=== PATIENT | female | born 1990 | race Caucasian/White ===

== ENCOUNTER 2016-12-11 06:12 | Inpatient (IN) | payer BC ==
[~2016-12-11] VITALS: Ht 160 cm; Wt 95.5 kg
--- NOTE | ~2016-12-11 | DS ---
PATIENT'S NAME: PERLA VERA [facility] AGE: 26 Y [address] ROOM: [address] [address] LOCATION: GOBS ADMIT DATE: 12/11/2016 Discharge Summary DISCHARGE DATE: 12/14/2016 FAMILY PHYSICIAN: PHYSICIAN, NO ATTENDING PHYSICIAN: Agueda Fuentes DISCHARGE DIAGNOSES: 1. Intrauterine at 39 weeks. 2. Prior section x2. PROCEDURE: Repeat low transverse section. REASON FOR ADMISSION: This is a 26-year-old 3, para 2-0-0-2, who presents at 39 weeks' gestation for repeat section. Please see full H and P. HOSPITAL COURSE: The patient is admitted and a repeat low transverse section was performed without difficulty. It was done under spinal anesthetic. Following surgery, she had a TAP block. She had 500 mL of blood loss during surgery. On postop day #1, her hemoglobin is 11.4. On postop day #2, her incision is clean, dry, and intact. The patient desires discharge. On postop day #3,she is sent home with Percocet and Motrin for pain. She will follow up with Dr. Fuentes in 2 and 6 week's time. Precautions are reviewed. MD MINA LARA/yolanda /[id number] d: 12/30/16 0308 t: 01/05/17 1301, DISCHARGE SUMMARY
--- NOTE | ~2016-12-11 | OR ---
PATIENT'S NAME: PERLA VERA [facility] AGE: 26 Y [address] ROOM: [address] [address] LOCATION: [facility] ADMIT DATE: 12/11/2016 OR/Procedure Report DISCHARGE DATE: FAMILY PHYSICIAN: PHYSICIAN, NO ATTENDING PHYSICIAN: Agueda Fuentes SURGEON: Agueda Fuentes MD WAX ENGRAVER: Dr. Galvez. DATE OF PROCEDURE: 12/11/2016 PREOPERATIVE DIAGNOSES: 1. Intrauterine at 39 weeks. 2. Prior section x2. POSTOPERATIVE DIAGNOSES: 1. Intrauterine at 39 weeks. 2. Prior section x2. 3. Meconium-stained fluid. ANESTHESIA: Spinal. ESTIMATED BLOOD LOSS: 500 mL. COMPLICATIONS: None. PROCEDURES: Repeat low transverse section. DESCRIPTION OF PROCEDURE: The patient in the operating room and placed under spinal anesthetic. She was prepped and draped and a Davis catheter was placed. A Pfannenstiel skin incision was made with a knife and carried down to the level of the fascia. The fascia was nicked in midline. The incision was carried out laterally. The fascia sharply and bluntly dissected from the underlying rectus muscles. Peritoneum was opened sharply and incised and stretched. The bladder blade was placed. Bladder reflection was taken down sharply and placed behind the bladder blade. A low transverse uterine incision was made with a knife and carried out laterally with the hogshead press operator's fingers. Meconium-stained fluid was noted. The vertex was delivered over the uterine incision. Mouth and nares were suctioned. Shoulders and body were delivered. Baby boy is continued to be suctioned and then he was handed off to the warmer. He weighed 8 pounds 7 ounces with of 8 and 8. A three- vessel cord was noted. Placenta delivered manually and intact. It was sent to pathology. The uterus clamped down nicely. Remaining membranes were swept from the uterus. The uterine incision closed in a running locking stitch of 0 chromic and closed with a second stitch of 0 chromic. The uterine tone is good and bleeding is minimal. The tubes and ovaries were normal. The uterus was replaced within the peritoneal cavity. The peritoneum was closed with 2-0 PATIENT'S NAME: PERLA VERA [facility] AGE: 26 Y [address] ROOM: [address] [place], [place] [address] LOCATION: BS ADMIT DATE: 12/11/2016 OR/Procedure Report DISCHARGE DATE: FAMILY PHYSICIAN: PHYSICIAN, DEBBY ATTENDING PHYSICIAN: Agueda Fuentes Vicrykaila. 0 Vicryl was used to close the fascia, tied separately in the midline. A 4-0 Dexon was used to close the skin. The patient tolerated the procedure well. She and her baby boy were doing well in recovery. Before the bandage was placed, Steri-Strips and benzoin were placed. MD MINA LARA/yolanda /[id number] d: 12/11/16913 t: 12/12/16 09, OPERATIVE SUMMARY
--- NOTE | ~2016-12-11 | HP ---
PATIENT'S NAME: PERLA VERA [facility] AGE: 26 Y [address] ROOM: [place] [address] LOCATION: [facility] ADMIT DATE: 12/11/2016 History & Physical DISCHARGE DATE: FAMILY PHYSICIAN: PHYSICIAN, NO ATTENDING PHYSICIAN: Agueda Fuentes DATE OF SERVICE: HISTORY OF PRESENT ILLNESS: This is a 26-year-old 3, para 2-0-0-2, who presents for repeat section. She has a due date of 12/15/2016, set by an early ultrasound. Her initial care was done in [place]. She transferred here on 20 weeks. There have been no complications. She did require 4 units of blood and a Bakri balloon with her first , but her second was really without complication. Her labs were in [place], showed O positive, antibody screen negative, RPR nonreactive, hepatitis B surface antigen nonreactive, gonorrhea and chlamydia negative, rubella immune, group B strep testing was done and was isolated. DICTATION ENDS HERE. MD MINA LARA/yolanda /[id number] D: [id number] T: [id number] HISTORY & PHYSICAL
[~2016-12-11 06:12] MED LIST: MOTRIN800 MG PO; PERCOCET 5-3251 EACH PO; PRENATAL 1+1)(P1 TAB PO
[2016-12-11 06:35] LABS: BASOPHIL % 0.2 %; EOSINOPHIL # 0.1 K/uL (0.0-0.5); EOSINOPHIL % 0.7 %; HEMATOCRIT 38.7 % (33.0-46.0); HEMOGLOBIN 12.8 g/dL (11.0-15.0); IMMATURE GRANULOCYTE # 0.1 K/uL (0.0-0.3); IMMATURE GRANULOCYTE % 0.6 %; LYMPHOCYTE # 2.6 K/uL (0.8-4.0); LYMPHOCYTE % 23.4 %; MCH 31.4 pg (27.0-34.0); MCHC 33.1 gm/dL (32.0-36.5); MCV 94.9 fl (83.0-98.0); MONOCYTE # 0.7 K/uL (0.0-1.0); MONOCYTE % 6.3 %; MPV 10.1 fl (9.4-12.4); NEUTROPHIL # (ANC) 7.6 K/uL (1.8-7.8); NEUTROPHIL % 68.8 %; NRBC % 0 /100WBC (0-0.00); PLATELET COUNT 222 K/uL (150-450); RDW-CV 13.7 % (11.9-14.6)
[2016-12-11 06:37] LABS: RBC 4.08 M/uL (3.50-5.00)
--- NOTE | 2016-12-11 16:42 | NUR ---
Last VS: T:97.0 P:62 R: 16 BP: 101/72 Pain ratin Last pain med: Toradol at 1500, Percocet due at 1700 Medicated at: Effective: yes R Lung sounds: clear L Lung sounds: clear Fundus: firm, -1 midline Lochia: rubra small Breasts: soft Nipples: flat and graspable, given a nipple everter Incision: drsg intact Incision appearance: Bowel sounds: present Passing flatus: Voiding well: 1725 out alvarez, + 1 mod void post alvarez removal Significant event: Alvarez catheter was removed at 1520. She ambulated to the bathroom after and had a mod void. Passed few clots. She was able to dress and up independently in her room.
[2016-12-12 05:08] LABS: BASOPHIL % 0.2 %; EOSINOPHIL # 0.1 K/uL (0.0-0.5); EOSINOPHIL % 0.6 %; HEMATOCRIT 34.7 % (33.0-46.0); HEMOGLOBIN 11.4 g/dL (11.0-15.0); IMMATURE GRANULOCYTE # 0.1 K/uL (0.0-0.3); IMMATURE GRANULOCYTE % 0.5 %; LYMPHOCYTE # 2.5 K/uL (0.8-4.0); LYMPHOCYTE % 22.9 %; MCH 31.3 pg (27.0-34.0); MCHC 32.9 gm/dL (32.0-36.5); MCV 95.3 fl (83.0-98.0); MONOCYTE # 0.6 K/uL (0.0-1.0); MONOCYTE % 5.9 %; NEUTROPHIL # (ANC) 7.5 K/uL (1.8-7.8); NEUTROPHIL % 69.9 %; NRBC % 0 /100WBC (0-0.00); PLATELET COUNT 188 K/uL (150-450); RBC 3.64 M/uL (3.50-5.00); RDW-CV 13.8 % (11.9-14.6); WBC 10.7 K/uL (4.0-11.0)
--- NOTE | 2016-12-12 05:16 | NUR ---
Last VS: T:98.3 P:74 R: 16 BP: 109/70 Pain ratin Last pain med: Percocet Medicated at: 0513 Effective: R Lung sounds: Clear L Lung sounds: Clear Fundus: midline, firm Lochia: rubra, small Breasts: soft Nipples: intact Incision: Covered by dressing, dressing is clean, dry, intact Incision appearance: Incision closure: Bowel sounds: Active Passing flatus: No Voiding well: Yes Significant event: VSS. Up independently. at the bedside. Cooperative with cares.
--- NOTE | 2016-12-12 14:35 | NUR ---
Met elke and baby at bedside today. Introduced myself and the role of the CM department. Patient and her deny having any discharge needs. They have 2 other children at home. They have all necessary items for baby. Instructed them to contact their insurance within 30 days to get baby added to the policy. They deny having any questions or concerns at this time.
--- NOTE | 2016-12-13 05:39 | NUR ---
VSS, fundus firm, lochia small, emptying bladder without difficulty. incision dry and intact, steristrips look good. up ad mariaa. doing well. last meds were at 0500, 2 percocet and 1 motrin.
--- NOTE | 2016-12-13 16:28 | NUR ---
Last VS: T:98.2 P:76 R: 14 BP: 97/55 Pain rating: . Last pain med: percocets Medicated at: Effective: R Lung sounds: clear L Lung sounds: clear Fundus: firm and 1 finger down Lochia: , Breasts: , Nipples: Incision: , Incision appearance: incision clean and dry with sutures and strips intact. Incision closure: Bowel sounds: present Passing flatus: yes Voiding well: yes Significant event: . patient up and about in room and hallway.
--- NOTE | 2016-12-14 04:42 | NUR ---
VSS, fundus firm, lochia small, emptying bladder without difficulty. incision looks good, steristrips intact.
[2016-12-14] MEDS ORDERED: PERCOCET 5-3251 EACH PO (11:16)
[2016-12-14] MEDS ORDERED: MOTRIN800 MG PO (11:16)
== END 2016-12-14 17:40 | disposition disaster alternative care site (69) | DRG 766 ==
LOC: GOBS 06:12
PROVIDERS: ADMIT Obstetrics & Gynecology
PROC: 10D00Z1 Extraction of Products of Conception, Low, Open Approach (ICD-10-PCS; principal; 2016-12-11)
PROC: 0W3R0ZZ Control Bleeding in Genitourinary Tract, Open Approach (ICD-10-PCS; 2016-12-11)
PROC: 30233N1 Transfusion of Nonautologous Red Blood Cells into Peripheral Vein, Percutaneous Approach (ICD-10-PCS; 2016-12-11)
DX: O34.211 Maternal care for low transverse scar from previous cesarean delivery (principal); O77.0 Labor and delivery complicated by meconium in amniotic fluid; Z3A.39 39 weeks gestation of pregnancy; Z37.0 Single live birth
CPT/HCPCS: J0690; J1885; J7120